=== PATIENT | male | born 1970 ===

== ENCOUNTER 2020-09-19 02:16 | Outpatient (CLI) | payer OTHER, SELFPAY ==
[2020-09-19 18:46] LABS: SARS-CoV-2 RNA PCR Negative
== END 2020-09-19 02:17 | disposition home or self-care (01) ==
LOC: ANHCOVIDDT 02:16
PROVIDERS: Visit Provider Internal Medicine Gastroenterology
DX: Z01.818 Encounter for other preprocedural examination (principal); Z20.828 Contact with and (suspected) exposure to other viral communicable diseases
CPT/HCPCS: 87635; C9803; U0003

== ENCOUNTER 2020-09-22 00:41 | Day surgery (SDC) | payer OTHER, SELFPAY ==
[2020-09-16 13:17] VITALS: BMI 35.0
[2020-09-22 08:34] VITALS: BP 137/86; PULSE 70; RESP 20; TEMP 36.2; O2SAT 98; BMI 36.8
[2020-09-22] MEDS: LACTATED RINGERS 1,000 ML 150 ML IV CONT (08:47)
--- NOTE | 2020-09-22 09:10 | P.PNAN_ITS ---
Anes - Initial Pre Proc Eval Procedure: Operation Date: 09/22/20 09:30 Proposed Procedures p Screening Colonoscopy - Chase Park MD Date/Time: 09/22/20 09:10 Surgeon: Chase Park MD Pre Op Diagnosis: Neoplasm Screening Patient Data Age: 50 Gender: M Height: 5 ft 11 in Weight: 119.9 kg Last Vital Signs Temp 36.2 C L 09/22/20 08:34 Pulse 70 09/22/20 08:34 Resp 20 09/22/20 08:34 BP 137/86 09/22/20 08:34 Pulse Ox 98 09/22/20 08:34 Allergies Allergy/AdvReac Type Severity Reaction Status Date / Time No Known Allergies Allergy Verified 09/22/20 08:32 Home Medications Medication Instructions Recorded Confirmed Type levothyroxine 75 mcg PO DAILY 09/16/20 09/22/20 History sodium,potassium,mag sulfates 17.5 354 ml PO ONCE #354 ml 09/19/20 Rx gram-3.13 gram-1.6 gram oral soln oxycodone 5 mg PO DAILY PRN 09/22/20 09/22/20 History Patient hx anesthesia problems: none Family hx anesthesia problems: none [facility] Past Medical History Medical History (Updated 09/22/20 @ 09:11 by Juan M Tsai MD) Hypothyroidism Social History Social History Alcohol use details: rarely Living arrangements: with family Gender identity (if verbalized by the patient): Male Spiritual care concerns: No Anes - Eval Final PreProcedure Day of Procedure 09/22/20 09:10 Patient weight: obese Heart: regular rate and rhythm Lungs: clear to auscultation Airway: Mallampati scale class II Neurological: alert and oriented Last oral intake: >/= 8 hours ASA classification: III Emergent: no Anesthetic plan: proceed Anesthesia type and monitoring: general GIVS and standard monitoring Informed Consent: The patient's anesthetic plan and its attendant risks and benefits were discussed with the patient/family/POA. Questions were solicited and answers provided to the satisfaction of the patient/family/POA.
--- NOTE | 2020-09-22 09:47 | PM.HPGS ---
History of Present Illness History of Present Illness Consent: Risks, benefits, and alternatives have been discussed and questions answered. Patient agrees to proceed with procedure. Chief complaint: Neoplasm Screening Narrative: Bennie Bean is a 50 year old male with colon polyp 2017, due to have another one. Review of Systems Constitutional: Constitutional: Denies headache(s) and Denies weakness Eyes: Eyes: Denies blurry vision ENT: Reports Normal hearing present, Denies headache(s) and Denies neck pain Cardiovascular: Cardiovascular: Denies chest pain and Denies dyspnea Respiratory: Respiratory: Denies dyspnea Gastrointestinal: Gastrointestinal: Reports no additional gastrointestinal complaints Genitourinary: Genitourinary: Denies dysuria Musculoskeletal: Musculoskeletal: Denies neck pain Integumentary/Breasts: Skin/Breast: Denies dry skin Neurologic: Reports Normal hearing present, Denies headache(s) and Denies weakness Psychiatric: Psychiatric: Denies anxiety Endocrine: Endocrine: Denies change in body appearance Hematologic/Lymphatic: Hematologic/Lymphatic: Denies easy bleeding Allergic/Immunologic: Allergic/Immunologic: Denies urticaria PMFSH Past Medical History Medical History (Updated 09/22/20 @ 09:48 by Chase Park MD) Adenomatous colon polyp Hypothyroidism Social History Social History Alcohol use details: rarely Living arrangements: with family Gender identity (if verbalized by the patient): Male Spiritual care concerns: No Meds Home Medications and Allergies Home Medications Medication Instructions Recorded Confirmed Type levothyroxine 75 mcg PO DAILY 09/16/20 09/22/20 History sodium,potassium,mag sulfates 17.5 354 ml PO ONCE #354 ml 09/19/20 Rx gram-3.13 gram-1.6 gram oral soln oxycodone 5 mg PO DAILY PRN 09/22/20 09/22/20 History Allergies Allergy/AdvReac Type Severity Reaction Status Date / Time No Known Allergies Allergy Verified 09/22/20 08:32 Vital Signs Vital Signs - 24 hr 09/22/20 08:34 Temperature 97.1 F L Pulse Rate 70 Respiratory Rate 20 Blood Pressure 137/86 Pulse Oximetry 98 Exam Const: General: comfortable and no acute distress HENMT: General nose exam: Normal nares present Eyes: General: appearance normal, both eyes and all related structures Neck: Neck: no JVD Resp: Auscultation: clear to auscultation bilaterally Cardio: Rate: regular rate Rhythm: regular rhythm GI: Inspection: non-distended GI Palp: Yes Soft to palpation Skin: General skin exam: normal color Neuro: General: gait normal Speech: normal speech Extrem: General: normal to inspection Psych: Mental Status: mental status grossly normal Assessment and Plan Assessment and plan (1) Adenomatous colon polyp: Code(s): D12.6 - Benign neoplasm of colon, unspecified Status: Acute Assessment and Plan: will proceed with colonoscopy
[2020-09-22 10:13] VITALS: BP 113/80; PULSE 68; RESP 14; O2SAT 98
[2020-09-22 10:23] VITALS: BP 126/80; PULSE 61; RESP 16; O2SAT 97
[2020-09-22 10:33] VITALS: BP 127/82; PULSE 62; RESP 16; O2SAT 98
== END 2020-09-22 10:55 | disposition home or self-care (01) ==
PROVIDERS: PCP Internal Medicine; Visit Provider Internal Medicine Gastroenterology
PROC: 0DJD8ZZ Inspection of Lower Intestinal Tract, Via Natural or Artificial Opening Endoscopic (ICD-10-PCS; CPT 45378; principal; 2020-09-22 09:30)
DX: Z12.11 Encounter for screening for malignant neoplasm of colon (principal); K64.8 Other hemorrhoids; E03.9 Hypothyroidism, unspecified; E66.9 Obesity, unspecified; Z68.36 Body mass index [BMI] 36.0-36.9, adult
CPT/HCPCS: 45378; J2704; J7120